=== PATIENT | male | born 1955 | race Caucasian/White ===

== ENCOUNTER 2021-08-06 10:46 | Emergency (ER) | payer MEDICARE ==
[~2021-08-06] VITALS: Ht 182.9 cm; Wt 116.6 kg
[2021-08-06 11:43] LABS: BASO % 0 % (0-3); EOS % 0 % (0-3); HEMOGLOBIN 17.1 g/dL (13.0-17.5); LYMPH # 0.8 x10^3/uL (1.0-4.8); LYMPH % 24 % (24-48); MEAN CORPUSCULAR HEMOGLOBIN 31 pg (25-35); MEAN CORPUSCULAR HGB CONC 34 g/dL (31-37); MEAN CORPUSCULAR VOLUME 92 fL (79-100); MONO # 0.2 x10^3/uL (0.0-1.1); MONO % 6 % (0-9); NEUT # 2.4 x10^3/uL (1.8-7.7); NEUT % 70 % (31-73); PLATELET COUNT 121 x10^3/uL (140-400); RED BLOOD COUNT 5.45 x10^6/uL (4.30-5.70); WHITE BLOOD COUNT 3.4 x10^3/uL (4.0-11.0)
--- NOTE | 2021-08-06 11:43 | PHYS DOC ---
Past Medical History Additional Past Medical Histor: prediabetes (MARIE PORTILLO APRN) Past Surgical History: Other Additional Past Surgical Histo: right shoulder, elbow (MARIE PORTILLO APRN) Smoking Status: Never Smoker Alcohol Use: Occasionally (MARIE PORTILLO APRN) General Adult EDM: Chief Complaint: FLU SYMPTOM HPI: HPI: Patient is a 66-year-old male that presents today with increased fatigue and cough over the last 7 days. Patient states that earlier in the month he traveled to [place] by by car and attended a convention, he then drove back to couple days after getting back he started feeling bad approximately 7 days ago. Patient denies chest pain or shortness of breath, patient is unknown if he has had a fever he does have body aches, patient states that 2 other members of his family had the same thing and they have since ceased their symptoms. He denies swelling in bilateral legs. Patient does not have the Covid vaccine state he is waiting "for a real vaccine "to be developed. (MARIE PORTILLO APRN) Review of Systems: Review of Systems: Constitutional: Denies fever or chills. [] Eyes: Denies change in visual acuity. [] HENT: Denies nasal congestion or sore throat. [] Respiratory: Denies cough or shortness of breath. [] Cardiovascular: Denies chest pain or edema. [] GI: Denies abdominal pain, nausea, vomiting, bloody stools or diarrhea. [] : Denies dysuria. [] Musculoskeletal: Denies back pain or joint pain. [] Integument: Denies rash. [] Neurologic: Generalized weakness and body aches Endocrine: Denies polyuria or polydipsia. [] Lymphatic: Denies swollen glands. [] Psychiatric: Denies depression or anxiety. [] (MARIE PORTILLO APRN) Heart Score: C/O Chest Pain: N/A Risk Factors: Risk Factors: DM, Current or recent (<one month) smoker, HTN, HLP, family history of CAD, obesity. Risk Scores: Score 0 - 3: 2.5% MACE over next 6 weeks - Discharge Home Score 4 - 6: 20.3% MACE over next 6 weeks - Admit for Clinical Observation Score 7 - 10: 72.7% MACE over next 6 weeks - Early Invasive Strategies (MARIE PORTILLO APRN) Allergies: Allergies: Allergies Coded Allergies Type Severity Reaction Last Updated Verified No Known Drug Allergies 08/06/21 No (MARIE PORTILLO APRN) Physical Exam: PE: Constitutional: Well developed, well nourished, no acute distress, non-toxic appearance. [] HENT: Normocephalic, atraumatic, bilateral external ears normal, oropharynx moist, no oral exudates, nose normal. [] Eyes: PERRLA, EOMI, conjunctiva normal, no discharge. [] Neck: Normal range of motion, no tenderness, supple, no stridor. [] Cardiovascular:Heart rate regular rhythm, no murmur [] Lungs & Thorax: Bilateral breath sounds clear to auscultation [] Abdomen: Bowel sounds normal, soft, no tenderness, no masses, no pulsatile masses. [] Skin: Warm, dry, no erythema, no rash. [] Back: No tenderness, no CVA tenderness. [] Extremities: No tenderness, no cyanosis, no clubbing, ROM intact, no edema. [] Neurologic: Alert and oriented X 3, normal motor function, normal sensory function, no focal deficits noted. [] Psychologic: Affect normal, judgement normal, mood normal. [] (MARIE PORTILLO APRN) Current Patient Data: Labs: Laboratory Tests Test 08/06/21 11:24 08/06/21 11:30 Influenza Type A Antigen Negative Influenza Type B Antigen Negative SARS-CoV-2 Antigen (Rapid) Positive White Blood Count 3.4 x10^3/uL Red Blood Count 5.45 x10^6/uL Hemoglobin 17.1 g/dL Hematocrit 50.0 % Mean Corpuscular Volume 92 fL Mean Corpuscular Hemoglobin 31 pg Mean Corpuscular Hemoglobin Concent 34 g/dL Red Cell Distribution Width 13.0 % Platelet Count 121 x10^3/uL Neutrophils (%) (Auto) 70 % Lymphocytes (%) (Auto) 24 % Monocytes (%) (Auto) 6 % Eosinophils (%) (Auto) 0 % Basophils (%) (Auto) 0 % Neutrophils # (Auto) 2.4 x10^3/uL Lymphocytes # (Auto) 0.8 x10^3/uL Monocytes # (Auto) 0.2 x10^3/uL Eosinophils # (Auto) 0.0 x10^3/uL Basophils # (Auto) 0.0 x10^3/uL Sodium Level 136 mmol/L Potassium Level 4.0 mmol/L Chloride Level 101 mmol/L Carbon Dioxide Level 25 mmol/L Anion Gap 10 Blood Urea Nitrogen 20 mg/dL Creatinine 1.0 mg/dL Estimated GFR (Cockcroft-Gault) 74.5 BUN/Creatinine Ratio 20 Glucose Level 132 mg/dL Calcium Level 8.1 mg/dL Total Bilirubin 0.6 mg/dL Aspartate Amino Transf (AST/SGOT) 48 U/L Alanine Aminotransferase (ALT/SGPT) 74 U/L Alkaline Phosphatase 71 U/L Total Protein 5.9 g/dL Albumin 3.2 g/dL Albumin/Globulin Ratio 1.2 Vital Signs: Vital Signs Date Time Temp Pulse Resp B/P (MAP) Pulse Ox O2 Delivery O2 Flow Rate FiO2 08/06/21 13:07 75 20 136/63 (87) 98 Room Air 08/06/21 12:22 74 20 133/67 (89) 98 Room Air 08/06/21 11:07 99.0 72 24 146/77 (100) 98 Room Air 99.0 Vital Signs Date Time Temp Pulse Resp B/P (MAP) Pulse Ox O2 Delivery O2 Flow Rate FiO2 08/06/21 11:07 99.0 72 24 146/77 (100) 98 Room Air 99.0 (MARIE PORTILLO APRN) EKG: EKG: [] (MARIE PORTILLO GYNAECOLOGICAL ONCOLOGIST) Radiology/Procedures: Radiology/Procedures: REASON: fatigue PROCEDURE: CHEST AP ONLY Study: XR CHEST 1V Indication: Fatigue. Comparison: None. Findings: Ill-defined subpleural hazy attenuation at the lower aspect of both lungs not fully explained by summation artifact with the superimposed scapula. The left costophrenic angle is mildly blunted but not definitively secondary to a small pleural effusion. No pneumothorax. Upper limits of normal size of the cardiomediastinal silhouette. Left upper lung granuloma. Impression: Suspected mild subpleural infiltrates at the lower lungs which could be secondary to an atypical/viral pneumonia in the appropriate clinical setting. Electronically signed by: AI ESPAÑA MD (08/06/2021 12:01 PM) [id number] [] (MARIE PORTILLO APRN) Course & Med Decision Making: Course & Med Decision Making Pertinent Labs and Imaging studies reviewed. (See chart for details) 1305 spoke to patient regarding lab results patient was told that he is Covid positive patient will need to quarantine for 14 days from the time his symptoms started, increase by mouth fluids, take Tylenol and/or ibuprofen as needed for pain. Patient is instructed to return to the emergency department for increased shortness of breath, if you have a pulse ox that reads below 90% after 2 to 3 minutes of reading please call 911 and return to the emergency department. [] (MARIE PORTILLO APRN) Dragon Disclaimer: Dragon Disclaimer: This electronic medical record was generated, in whole or in part, using a voice recognition dictation system. (MARIE PORTILLO APRN) Departure Departure Impression: Primary Impression: COVID-19 Disposition: 01 HOME / SELF CARE / HOMELESS Condition: STABLE Referrals: NO PCP (PCP) Additional Instructions: You have been tested for or diagnosed with COVID-19. It is an infection caused by a new type of coronavirus. COVID-19 will cause cold-like or mild flu symptoms in most. It can cause more severe symptoms like problems breathing in some. There is no treatment for COVID-19. The body will clear the infection over time. Self-care will help to ease discomfort. Steps to Take: Self-Care Rest as needed. Healthy habits may help you feel better. Steps include: Choose healthy foods including fruits and vegetables. Drink water throughout the day. Get plenty of sleep each night. If you smoke, try to quit. It may ease breathing. Avoid alcohol. Keep Others Healthy The virus can spread to others. Droplets are released every time you sneeze or cough. The droplets can get into the mouth, nose, or eyes of people near you and lead to in fection. To lower the chances of spreading COVID-19 to others: Stay at home until your doctor has said it is safe to leave. If you tested positive this will mean staying isolated until both of the following are true: At least 7 days have passed since the start of illness. You are free of fever for at least 72 hours without the use of medicine. During this time: - Avoid public areas, events, or transportation. Do not return to work or school until your doctor has said it is safe to do so. - Call ahead if you need to go to a medical center. Let them know you may have COVID-19. It will help them guide you where to go. They may also ask you to wear a facemask when you come to the office. - If you call for emergency medical services, let them know you may have COVID- 19. While at home: - Try to avoid close contact with others. Stay about 6 feet away. - If possible, spend most of your time in a separate room from others. - Use a face mask if you will be in close contact with others such as sharing a room or vehicle. - Have someone wipe down common surfaces in the home. Use household child care group leader every day on areas like doorknobs, counters, or sinks. - Cough or sneeze into a tissue. Throw the tissue away right after use. If a tissue is not available, cough or sneeze into your elbow. - Wash your hands often. Wash them after sneezing or coughing. Use soap and water and wash for at least 20 seconds. Alcohol based hand coach cleaner can be used if soap and water is not available. - Do not prepare food for others. Avoid sharing personal items like forks, spoons, or toothbrushes. - Avoid close contact with pets while you are sick. There is no evidence of the virus passing to pets. This is a safety step until more is known about this virus. Isolation can be frustrating. Social interaction can help. Keep in touch with friends and family through phone and tech options. You can still interact with others in your home, just keep a safe distance of about 6 feet. Follow-up: Your doctors office will check in with you to see if there are any changes in your health. You may be asked to keep track of symptoms to share with them. They will also let you know when you are clear to be in public again. Problems to Look Out For: Contact your doctor if your recovery is not going as you expect. Get emergency care if you have problems such as: - Trouble breathing - Nonstop chest pain or pressure - Changes in awareness, confusion, or problems waking - Lips or face have bluish color - Worsening of symptoms If you think you have an emergency, call for emergency medical services right away. As taken from [facility] Attending Signature Attending Signature I have reviewed the PA/INSULATION CUTTER's note and plan of care. I was available for consultation as needed during the patient's visit in the emergency department. I agree with the clinical impression, plan, and disposition. (DAX OROSCO DO) MARIE PORTILLO APRN Aug 06, 2021 11:43 DAX OROSCO DO Aug 07, 2021 06:26
[2021-08-06 11:48] LABS: INFLUENZA A PATIENT NEGATIVE (NEGATIVE); INFLUENZA B PATIENT NEGATIVE (NEGATIVE)
[2021-08-06 11:56] LABS: CALCIUM 8.1 mg/dL (8.5-10.1); GFR 74.5
--- NOTE | 2021-08-06 12:03 | RAD ---
Study: XR CHEST 1V Indication: Fatigue. Comparison: None. Findings: Ill-defined subpleural hazy attenuation at the lower aspect of both lungs not fully explained by summ ation artifact with the superimposed scapula. The left costophrenic angle is mildly blunted but not d efinitively secondary to a small pleural effusion. No pneumothorax. Upper limits of normal size of th e cardiomediastinal silhouette. Left upper lung granuloma. Impression: Suspected mild subpleural infiltrates at the lower lungs which could be secondary to an atypical/natividad l pneumonia in the appropriate clinical setting. Electronically signed by: AI ESPAÑA MD (08/06/2021 12:01 PM) [id number]
[2021-08-06 12:05] LABS: ALBUMIN 3.2 g/dL (3.4-5.0); ALBUMIN/GLOBULIN RATIO 1.2 (1.0-1.7); TOTAL BILIRUBIN 0.6 mg/dL (0.2-1.0); TOTAL PROTEIN 5.9 g/dL (6.4-8.2)
[2021-08-06 13:07] VITALS: BP 136/63
== END 2021-08-06 13:27 | disposition home or self-care (01) ==
LOC: ER 11:16
DX: U07.1 COVID-19 (principal)
CPT/HCPCS: 36415; 71045; 80053; 85025; 87426; 87804; 99284

== ENCOUNTER 2021-08-10 15:28 | Emergency (ER) | payer MEDICARE ==
[~2021-08-10] VITALS: Ht 182.9 cm; Wt 115.9 kg
--- NOTE | 2021-08-10 16:11 | PHYS DOC ---
Past Medical History Additional Past Medical Histor: prediabetes, HIGH URIC ACID Past Surgical History: Other Additional Past Surgical Histo: right shoulder, elbow Smoking Status: Never Smoker Alcohol Use: None General Adult EDM: Chief Complaint: SHORTNESS OF BREATH HPI: HPI: Patient is a 66 year old male who presents with increasing shortness of breath in the setting of known COVID-19 infection. Tested positive on 08/06. It was seen in this ED and diagnosed with COVID-19 pneumonia previously, but did not require oxygen and was discharged home. He has had increasing shortness of breath, cough, fever, chills, nausea, body aches. Denies chest pain, lower extremity edema. Is not vaccinated for Covid Review of Systems: Review of Systems: Constitutional: Reports fever and chills Eyes: Denies change in visual acuity. [] Respiratory: Reports cough and shortness of breath Cardiovascular: Denies chest pain or edema. [] GI: Reports nausea and vomiting. Denies abdominal pain, bloody stools or diarrhea. [] : Denies dysuria. [] Musculoskeletal: Denies back pain or joint pain. [] Integument: Denies rash. [] Neurologic: Denies headache, focal weakness or sensory changes. [] Endocrine: Denies polyuria or polydipsia. [] Lymphatic: Denies swollen glands. [] Psychiatric: Denies depression or anxiety. [] Heart Score: C/O Chest Pain: No Allergies: Allergies: Allergies Coded Allergies Type Severity Reaction Last Updated Verified No Known Drug Allergies 08/10/21 No Physical Exam: PE: Constitutional: In mild respiratory distress, tachypneic, 34 word sentences. HENT: Normocephalic, atraumatic, bilateral external ears normal, oropharynx moist, no oral exudates, nose normal. [] Eyes: conjunctiva normal, no discharge. [] Neck: Normal range of motion, no tenderness, supple, no stridor. [] Cardiovascular:Heart rate regular rhythm, no murmur [] Lungs & Thorax: Bilateral crackles and mild respiratory distress as above. Abdomen: Bowel sounds normal, soft, no tenderness, no masses, no pulsatile masses. [] Skin: Warm, dry, no erythema, no rash. [] Back: No tenderness, no CVA tenderness. [] Extremities: No tenderness, no cyanosis, no clubbing, ROM intact, no edema. [] Neurologic: Alert and oriented X 3, normal motor function, normal sensory function, no focal deficits noted. [] Psychologic: Affect normal, judgement normal, mood normal. [] Current Patient Data: Vital Signs: Vital Signs Date Time Temp Pulse Resp B/P (MAP) Pulse Ox O2 Delivery O2 Flow Rate FiO2 08/10/21 15:39 99.3 83 24 150/79 (102) 94 Room Air 99.3 EKG: EKG: [] Sinus rhythm. Rate 78. Normal axis. Normal intervals. No ST elevation, depression, T wave inversion, or pathologic Q waves. Radiology/Procedures: Radiology/Procedures: [] Impression: [facility] [address] [place] [address] IMAGING REPORT Signed PATIENT: GILBERT WALDEN ACCOUNT: [id number] : 1955 LOCATION: ER AGE: 66 SEX: M EXAM STATUS: REG ER ORD. PHYSICIAN: ILA RIOS MD REASON: sob, covid + PROCEDURE: CHEST AP ONLY Single view of the chest. 08/10/2021 3:48 PM Indication: Reason: sob, covid + Comparison: Chest radiograph August 06, 2021 Findings: Lordotic projection noted. Diffuse interstitial infiltrates have increased in the interim. Calcified nodule in the left upper lung is similar. No pneumothorax or effusion is seen. Heart size is within normal limits. No acute osseous changes are identified.. IMPRESSION: Increasing interstitial infiltrates in the interim Electronically signed by: Terence Mitchell MD (08/10/2021 4:17 PM) [id number] DICTATED and SIGNED BY: TERENCE MITCHELL MD DATE: 08/10/21 [id number] Course & Med Decision Making: Course & Med Decision Making Pertinent Labs and Imaging studies reviewed. (See chart for details) Patient is 66-year-old male who tested positive for Covid on 08/06 who presents with increasing shortness of breath. On arrival continues to sat 96+ percent on room air, but does have a increased work of breathing. We will evaluate for progressive COVID-19 pneumonia as well as PE. D-dimer, troponin, basic labs, and CXR ordered. 1611 Trop negative. Age adjusted d-dimer negative at 0.51 (using 0.67 cut off). Chest x-ray does show increasing infiltrates which likely account for his increasing shortness of breath. Fortunately, his oxygen saturations have remained in the mid 90s without any desaturations. I do not feel that he requires admission or steroids at this time. He does have a home pulse oximeter and will continue to monitor and return for sats below 90, chest pain, unilateral leg swelling. 1755 Opez Disclaimer: Carolyn Disclaimer: This electronic medical record was generated, in whole or in part, using a voice recognition dictation system. Departure Departure Impression: Primary Impression: Pneumonia due to COVID-19 virus Disposition: HOME / SELF CARE / HOMELESS Condition: STABLE Referrals: NO PCP (PCP) Additional Instructions: You have COVID-19 pneumonia. There is no signs of a blood clot on your blood work. There is no signs of heart strain on your blood work or EKG. Your oxygen levels stayed at a good level throughout your emergency department stay. If at home your oxygen levels dropped below 90% and do not quickly recover you need to return to the emergency department for reevaluation. Please check your oxygen levels at least twice a day. Other concerning symptoms would be chest pain, one-sided leg swelling, inability to care for yourself, or severe worsening in your shortness of breath. Please consider getting vaccinated after you recover from this illness, studies have shown that vaccination can still give protection against future infections even if you've already had covid. ILA RIOS MD Aug 10, 2021 16:11
[2021-08-10 16:17] LABS: BASO % 0 % (0-3); EOS % 0 % (0-3); HEMATOCRIT 50.1 % (39.0-53.0); HEMOGLOBIN 17.5 g/dL (13.0-17.5); LYMPH % 24 % (24-48); MEAN CORPUSCULAR HEMOGLOBIN 32 pg (25-35); MEAN CORPUSCULAR HGB CONC 35 g/dL (31-37); MEAN CORPUSCULAR VOLUME 91 fL (79-100); MONO # 0.4 x10^3/uL (0.0-1.1); MONO % 9 % (0-9); NEUT # 2.7 x10^3/uL (1.8-7.7); NEUT % 66 % (31-73); PLATELET COUNT 184 x10^3/uL (140-400); RED BLOOD COUNT 5.48 x10^6/uL (4.30-5.70); WHITE BLOOD COUNT 4.1 x10^3/uL (4.0-11.0)
--- NOTE | 2021-08-10 16:20 | RAD ---
Single view of the chest. 08/10/2021 3:48 PM Indication: Reason: sob, covid + Comparison: Chest radiograph August 06, 2021 Findings: Lordotic projection noted. Diffuse interstitial infiltrates have increased in the interim. Calcified nodule in the left upper lung is similar. No pneumothorax or effusion is seen. Heart size i s within normal limits. No acute osseous changes are identified.. IMPRESSION: Increasing interstitial infiltrates in the interim Electronically signed by: Terence Mitchell MD (08/10/2021 4:17 PM) [id number]
[2021-08-10 16:27] LABS: CALCIUM 8.1 mg/dL (8.5-10.1); CREATININE 0.9 mg/dL (0.7-1.3); GFR 84.2; POTASSIUM 3.9 mmol/L (3.5-5.1)
[2021-08-10 16:33] LABS: ALBUMIN 2.9 g/dL (3.4-5.0); ALBUMIN/GLOBULIN RATIO 0.9 (1.0-1.7); TOTAL PROTEIN 6.3 g/dL (6.4-8.2)
[2021-08-10] MEDS ORDERED: ONDA4TAB7 PO (17:59)
[2021-08-10 18:13] VITALS: BP 143/74
== END 2021-08-10 18:28 | disposition home or self-care (01) ==
LOC: ER 15:28
DX: U07.1 COVID-19 (principal)
CPT/HCPCS: 36415; 71045; 80053; 84484; 85025; 85379; 99285-25